=== PATIENT | female | born 1970 | race Caucasian/White ===

== ENCOUNTER → 2019-06-13 | Outpatient (CLI) | payer OTHER ==
[2019-06-13 09:25] LABS: Basophils # (A) 0.1 k/uL (0-0.2); Basophils % (A) 1 %; Eosinophils # (A) 0.2 k/uL (0-0.7); Eosinophils % (A) 2 %; Lymphocytes % (A) 32 %; MCH 26.8 pg (25.0-35.0); MCHC 31.6 g/dL (31.0-37.0); MCV 84.8 fL (80.0-100.0); Mean Platelet Volume 7.1; Monocytes # (A) 0.5 k/uL (0-1.0); Monocytes % (A) 6 %; Neutrophils # (A) 5.4 k/uL (1.3-7.7); Neutrophils % (A) 58 %; Platelet Count 301 k/uL (150-450); RBC 4.48 m/uL (3.80-5.40); RDW 14.4 % (11.5-15.5); WBC 9.2 k/uL (3.8-10.6)
[2019-06-13 09:40] LABS: Appearance,Urine Clear (Clear); Bilirubin,Urine Negative (Negative); Blood,Urine Negative (Negative); Color,Urine Light Yellow; Glucose,Urine (UA) Negative (Negative); Ketones,Urine Negative (Negative); Leukocyte Esterase,Urine Negative (Negative); Nitrite,Urine Negative (Negative); Protein,Urine Negative (Negative); Specific Gravity,Urine 1.005 (1.001-1.035); Urobilinogen,Urine <2.0 mg/dL (<2.0)
[2019-06-13 09:54] LABS: African American GFR (CKD) >90 (>60 ml/min/1.73 sqM); Anion Gap 9 mmol/L; Blood Urea Nitrogen 13 mg/dL (7-17); Calcium 9.5 mg/dL (8.4-10.2); Carbon Dioxide 25 mmol/L (22-30); Chloride 106 mmol/L (98-107); Glucose 111 mg/dL (74-99); Non-African American GFR(CKD) >90 (>60 ml/min/1.73 sqM); Potassium 4.3 mmol/L (3.5-5.1); Sodium 140 mmol/L (137-145)
== END | disposition home or self-care (01) ==
LOC: LABPAT 08:47
PROVIDERS: ATTEND Urology
DX: Z01.812 Encounter for preprocedural laboratory examination (principal); D41.02 Neoplasm of uncertain behavior of left kidney
CPT/HCPCS: 80048; 81003; 85025; 87086

== ENCOUNTER 2019-06-18 11:32 | Inpatient (IN) | payer OTHER ==
[2019-06-11 09:23] VITALS: BMI 27.4
[~2019-06-18 11:32] MED LIST: DEXAMETHASONE SOD PHOSPHATE 10 MG/ML 1 ML VIAL IV ONE; LIDOCAINE 1% 20 ML VIAL (10MG/ML) FOR IV START INTRADERMA PRN; ONDANSETRON 4 MG/2 ML VIAL IVP ONE; SCOPOLAMINE 1.5MG/72HR PATCH TRANSDERM ONE
[2019-06-18] MEDS: LACTATED RINGERS 1,000 ML IV SCH (12:19)
[2019-06-18] MEDS ORDERED: LIDOCAINE 1% INJ 10MG/ML (20 ML MDV) ONE (12:42)
[2019-06-18] MEDS ORDERED: fentaNYL (PF) 50 MCG/ML 2 ML AMP ONE (12:42)
[2019-06-18] MEDS ORDERED: GLYCOPYRROLATE 0.2 MG/ML 2 ML VIAL ONE (12:42)
[2019-06-18] MEDS ORDERED: MIDAZOLAM 2 MG/2 ML VIAL ONE (12:42)
[2019-06-18] MEDS ORDERED: PHENYLEPHRINE-0.9% NACL SYG 1 MG/10 ML SYRINGE ONE (12:42)
[2019-06-18] MEDS ORDERED: PROPOFOL 10 MG/ML 20 ML VIAL IV ONE (12:42)
[2019-06-18] MEDS ORDERED: ROCURONIUM BROMIDE 10 MG/ML 10 ML VIAL IV ONE (12:42)
[2019-06-18] MEDS ORDERED: NEOSTIGMINE 1 MG/ML 10 ML VIAL ONE (12:42)
[2019-06-18] MEDS ORDERED: HEPARIN SODIUM,PORCINE 5,000 UNIT/ML 1 ML VIAL SQ ONE (12:47)
[2019-06-18] MEDS ORDERED: BUPIVACAINE (PF) 0.5% 30 ML VIAL SQ ONE (13:20)
--- NOTE | 2019-06-18 14:34 | P.OP ---
Date of Procedure: 06/18/19 Preoperative Diagnosis: Left renal mass Postoperative Diagnosis: Left renal mass Procedure(s) Performed: Robotic left radical nephrectomy Anesthesia: JAYLAN Surgeon: Susana Hewitt Estimated Blood Loss (ml): 25 IV fluids (ml): 1,000 Urine output (ml): 100 Pathology: other (left kidney and ureter) Condition: stable Disposition: PACU Indications for Procedure: Left renal mass suspicious for malignancy Operative Findings: #1 large left renal mass measuring 12 cm #2 extensive perinephric parasitic vessels Description of Procedure: was seen in the office for a large left renal mass that was suspicious for malignancy. She elected to undergo robotic left radical nephrectomy. All risks and complications were explained to her and a written informed consent was obtained. She was taken to the OR administered general anesthesia and placed in the left lateral position. She was fixed to the table and parts were repaired painted and draped. A Veress needle was used to gain access to the peritoneum and the abdomen was insufflated to 20 mmHg. four 8 mm robotic ports were placed along the midclavicular line. A 15 mm preschool assistant port was placed. The robot was docked. Using the monopolar scissors and a fenestrated bipolar and incision was made along the line of Toldt and the descending and sigmoid colon was reflected off the Gerota fascia. Immediately upon reflection off the colon it was obvious that a large lower and mid pole renal mass was present. There were extensive parasitic vessels both inferior and medial to the mass. The lieno ligament was divided and the spleen and the pancreas was lifted reflected medially. The ureter was identified in the pelvis and reflected up towards. The psoas muscle was identified and the ureter was held up with the fourth arm. The Gerotas was divided serially till we reached the renal hilum. An accessory renal artery was seen at the lower pole and this was doubly clipped and cut. Attention was directed to the superior pole of the kidney and the kidney was reflected from the adrenal gland. Once the hilum was isolated a 60 mm stapler with a vascular load was used to secure and divide the hilum. The superior pole of the kidney was then freed by cutting and dividing the Gerota's fascia. Care was taken to achieve hemostasis by bipolar coagulation of the parasitic veins. Once the entire kidney was dissected off the psoas the ureter was clipped and cut. Hemostasis was reconfirmed and the kidney with a renal mass was placed into a 15 mm Endo Catch bag. The robot was de-docked and the specimen was removed through a paramedian incision. The fascia was closed in 2 layers with #2-0 stratafix effects and the skin incision was closed with subcuticular 4-0 Monocryl. The patient was taken to recovery in stable condition
[2019-06-18] MEDS: HYDROmorphone 0.5 MG/0.5 ML SYRINGE IVP PRN ×3 (15:00→15:21)
[2019-06-18] MEDS ORDERED: ONDANSETRON 4 MG/2 ML VIAL IVP PRN (15:53)
[2019-06-18] MEDS ORDERED: ACETAMINOPHEN TAB 325 MG TAB PO PRN (15:53)
[2019-06-18] MEDS ORDERED: HYDROmorphone 1 MG/ML 1 ML SYRINGE IVP PRN (15:53)
[2019-06-18] MEDS: DEXTROSE 5%-0.45% NACL 1,000 ML IV SCH (18:05)
[2019-06-18] MEDS: KETOROLAC 30 MG/ML 1 ML VIAL IVP PRN (23:12)
[2019-06-19 02:01] VITALS: RESP 18
[2019-06-19] MEDS: KETOROLAC 30 MG/ML 1 ML VIAL IVP PRN ×2 (05:01→11:41)
[2019-06-19] MEDS: DEXTROSE 5%-0.45% NACL 1,000 ML IV SCH ×2 (05:01→13:04)
[2019-06-19] MEDS: LACTATED RINGERS 1,000 ML IV SCH (05:35)
[2019-06-19 07:50] LABS: HGB 11.1 gm/dL (11.4-16.0); MCH 27.6 pg (25.0-35.0); MCHC 32.7 g/dL (31.0-37.0); MCV 84.2 fL (80.0-100.0); Mean Platelet Volume 7.1; Platelet Count 286 k/uL (150-450); RBC 4.04 m/uL (3.80-5.40); RDW 14.8 % (11.5-15.5); WBC 12.4 k/uL (3.8-10.6)
[2019-06-19 08:01] LABS: ALT 27 U/L (9-52); AST 25 U/L (14-36); African American GFR (CKD) >90 (>60 ml/min/1.73 sqM); Albumin 3.9 g/dL (3.5-5.0); Alkaline Phosphatase 140 U/L (38-126); Anion Gap 8 mmol/L; Blood Urea Nitrogen 12 mg/dL (7-17); Carbon Dioxide 23 mmol/L (22-30); Chloride 107 mmol/L (98-107); Glucose 118 mg/dL (74-99); Sodium 138 mmol/L (137-145); Total Bilirubin 0.3 mg/dL (0.2-1.3); Total Protein 6.7 g/dL (6.3-8.2)
[2019-06-19 09:04] VITALS: BP 152/83; PULSE 77; TEMP 97.8
--- NOTE | 2019-06-19 11:44 | P.PN ---
Subjective Progress Note Date: 06/19/19 Principal diagnosis: Left Renal Mass POD #1 S/P left radical nephrecomty, no acute overnight event pain is controlled. Ambulating, tolerating diet Objective - Vital Signs Vital signs: Vital Signs Temp 97.8 F 06/19/19 09:03 Pulse 77 06/19/19 09:03 Resp 18 06/19/19 09:03 BP 152/83 06/19/19 09:03 Pulse Ox 94 L 06/19/19 09:03 Intake & Output 06/18/19 06/19/19 06/19/19 18:59 06:59 18:59 Intake Total 1450 1650 Output Total 1075 2250 Balance 375 -600 Weight 75.296 kg Intake: IV 1450 Intake, IV Titration 1450 Amount Dextrose 5%-0.45% NaCl 1, 1400 000 ml @ 125 mls/hr IV . Q8H ASHLY Rx#:[id number] ceFAZolin 2 gm In Sodium 50 Chloride 0.9% 50 ml @ 100 mls/hr IVPB Q8H ASHLY Rx#: [id number] Oral 200 Output: Urine 1025 2250 Uretheral (Norman) 750 Estimated Blood Loss 50 Other: Voiding Method Indwelling Catheter Indwelling Catheter Indwelling Catheter - Constitutional General appearance: Present: no acute distress - Gastrointestinal General gastrointestinal: Present: soft. Absent: distended, rigid, tenderness - Integumentary Integumentary Comment(s): port incision covered with dermabond left lateral incision CDI - Labs CBC & Chem 7: 06/19/19 07:04 06/19/19 07:04 Labs: Abnormal Lab Results - Last 24 Hours (Table) 06/19/19 06/19/19 Range/Units 07:04 07:04 WBC 12.4 H (3.8-10.6) k/uL Hgb 11.1 L (11.4-16.0) gm/dL Glucose 118 H (74-99) mg/dL Alkaline Phosphatase 140 H (38-126) U/L Assessment and Plan Assessment: POD #1 S/P Left radical nephrectomy -Pain control -Ambulate -D/C norman -Discharge home today
--- NOTE | 2019-06-19 11:51 | P.DS ---
Providers Date of admission: 06/19/19 11:00 06/18/19 Expected date of discharge: 06/19/19 Attending physician: Susana Hewitt Primary care physician: Beck Song [facility] Course: Ms. Zhao is 49 yo female with hx of left renal mass, she is S/P left radical nephrectomy. Please see OP note dated 06/18 for surgery details. She admitted post operatively. She did well in the post operative period and was discharged home on POD #1. At time of discharge she was tolerating diet, ambulating and pain well controlled Patient Condition at Discharge: Good Plan - Discharge Summary Discharge Rx Participant: Yes New Discharge Prescriptions: No Action Nicotine 21Mg/24Hr Patch [Habitrol] 1 each TRANSDERM DAILY Aspirin 81 mg PO DAILY Atorvastatin [Lipitor] 20 mg PO HS Metoprolol Succinate (ER) [Toprol Xl] 50 mg PO QAM Irbesartan 300 mg PO QAM amLODIPine [Norvasc] 10 mg PO QAM Discharge Medication List Aspirin 81 mg PO DAILY 06/11/19 [History] Atorvastatin [Lipitor] 20 mg PO HS 06/11/19 [History] Irbesartan 300 mg PO QAM 06/11/19 [History] Metoprolol Succinate (ER) [Toprol Xl] 50 mg PO QAM 06/11/19 [History] Nicotine 21Mg/24Hr Patch [Habitrol] 1 each TRANSDERM DAILY 06/11/19 [History] amLODIPine [Norvasc] 10 mg PO QAM 06/11/19 [History] Follow up Appointment(s)/Referral(s): Susana Hewitt MD [STAFF PHYSICIAN] - 1 Week Activity/Diet/Wound Care/Special Instructions: No heavy Lifting or straining You may shower tomorrow, but not baths Take your medication as prescribed Discharge Disposition: HOME SELF-CARE
--- NOTE | 2019-06-23 16:00 | CDI ---
Documentation Clarification Form Date: 06/23/19 From: Juliet Marie Phone: If you have a question regarding this query, please contact Yanique Mendez at [phone] between 8am and 5pm. Admit Date: 06/19/2019 11:00:00 AM Patient Name: Neris Zhao Visit Number: [id number] Discharge Date: 06/19/2019 3:09:00 PM ATTENTION: The Clinical Documentation Specialists (CDI) and [facility] Coding Staff appreciate your assistance in clarifying documentation. Please respond to the clarification below the line at the bottom and electronically sign. The CDI & [facility] Coding staff will review the response and follow-up if needed. Please note: Queries are made part of the Legal Health Record. If you have any questions, please contact the author of this message via ITS. Dr. 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 Documentation states: Left renal mass. Patient history/risk factors: Renal Mass Clinical Indicators: Renal Mass Treatment: Left radical nephrectomy In your professional opinion, do you agree with the pathology report specifying the left renal mass as clear cell (conventional) renal cell carcinoma confined to the kidney? Yes No Other (please specify) Unable to determine Yes Thx Dr Olson [facility]
== END 2019-06-19 15:09 | disposition home or self-care (01) | DRG 658 ==
LOC: OR 11:32 → 4SSUR 14:35 → OR 06-19 05:25 → OBSVTOIN 06-19 11:00
PROVIDERS: ADMIT Urology; ATTEND Urology
PROC: 0TT14ZZ Resection of Left Kidney, Percutaneous Endoscopic Approach (ICD-10-PCS; principal; 2019-06-19)
PROC: 8E0W4CZ Robotic Assisted Procedure of Trunk Region, Percutaneous Endoscopic Approach (ICD-10-PCS; 2019-06-19)
DX: C64.2 Malignant neoplasm of left kidney, except renal pelvis (principal); Z79.899 Other long term (current) drug therapy
CPT/HCPCS: 80053; 81025; 85027; 86850; 86900; 86901; 88307; 94760

== ENCOUNTER 2023-04-23 13:33 | Emergency (ER) | payer OTHER ==
[2023-04-23 13:48] VITALS: TEMP 98.2
[2023-04-23] MEDS ORDERED: SODIUM CHLORIDE 0.9% 500 ML 500 ML IV STA (13:48)
[2023-04-23 14:14] LABS: Basophils # (A) 0.1 k/uL (0-0.2); Basophils % (A) 1 %; Eosinophils # (A) 0.1 k/uL (0-0.7); Eosinophils % (A) 1 %; HCT 43.1 % (34.0-46.0); HGB 15.1 gm/dL (11.4-16.0); Lymphocytes # (A) 3.8 k/uL (1.0-4.8); Lymphocytes % (A) 42 %; MCH 31.5 pg (25.0-35.0); MCHC 35.1 g/dL (31.0-37.0); MCV 89.7 fL (80.0-100.0); Mean Platelet Volume 7.8; Monocytes # (A) 0.4 k/uL (0-1.0); Monocytes % (A) 5 %; Neutrophils # (A) 4.5 k/uL (1.3-7.7); Neutrophils % (A) 50 %; Platelet Count 229 k/uL (150-450); RDW 12.6 % (11.5-15.5)
--- NOTE | 2023-04-23 14:15 | XR ---
EXAMINATION TYPE: XR chest 2V DATE OF EXAM: 04/23/2023 COMPARISON: NONE HISTORY: Shortness of breath TECHNIQUE: Frontal and lateral views of the chest are obtained. FINDINGS: Scattered senescent parenchymal changes noted. No evidence for infiltrate. No evidence for atelectasis. Heart size is stable. Mediastinal structures are stable and grossly unremarkable. No evidence for hilar prominence. Degenerative changes dorsal spine. IMPRESSION: 1. No evidence for acute pulmonary disease.
[2023-04-23 14:26] LABS: ALT 32 U/L (4-34); AST 27 U/L (14-36); African American GFR (CKD) >90 (>60 ml/min/1.73 sqM); Alkaline Phosphatase 148 U/L (38-126); Anion Gap 9 mmol/L; Blood Urea Nitrogen 18 mg/dL (7-17); Calcium 9.6 mg/dL (8.4-10.2); Carbon Dioxide 23 mmol/L (22-30); Chloride 106 mmol/L (98-107); Glucose 118 mg/dL (74-99); Magnesium 2.1 mg/dL (1.6-2.3); Non-African American GFR(CKD) 87 (>60 ml/min/1.73 sqM); Potassium 3.9 mmol/L (3.5-5.1); Sodium 138 mmol/L (137-145); Total Bilirubin 0.4 mg/dL (0.2-1.3); Total Protein 7.1 g/dL (6.3-8.2)
--- NOTE | 2023-04-23 14:44 | ED ---
General Adult HPI - General Chief complaint: Arrhythmia/Palpitations Stated complaint: high BP Time Seen by Provider: 04/23/23 13:45 Source: patient, EMS, RN notes reviewed, old records reviewed Mode of arrival: EMS Limitations: no limitations - History of Present Illness Initial comments: This is a 53-year-old female presents emergency department stating that long time ago she had high blood pressure but when she had a kidney removed her blood pressure was back to normal. Patient states she hasn't seen a doctor since 2019. Patient states she comes in today via EMS because she had fluttering in her heart that lasted about 2 seconds and she immediately called 911 because it scared her. Patient states it happened one more time that lasted shorter than 2 seconds and she hasn't had it since. Patient denies headache patient denies any numbness weakness. Patient denies any visual disturbance. Patient denies any chest pain difficulty breathing shortness of breath. Patient states when the fluttering occurred she was a little lightheaded but she didn't think she was given a passout. Patient denies any fever chills or cough per patient denies abdominal pain patient with any nausea or vomiting. - Related Data Home Medications Medication Instructions Recorded Confirmed Aspirin 81 mg PO DAILY 06/11/19 04/23/23 Previous Rx's Medication Instructions Recorded amLODIPine [Norvasc] 5 mg PO DAILY #10 tab 04/23/23 Allergies Allergy/AdvReac Type Severity Reaction Status Date / Time No Known Allergies Allergy Verified 04/23/23 14:46 Review of Systems ROS Statement: Those systems with pertinent positive or pertinent negative responses have been documented in the HPI. ROS Other: All systems not noted in ROS Statement are negative. Past Medical History Past Medical History: Cancer, Hypertension, Pneumonia Additional Past Medical History / Comment(s): pt states "malignant mass left kidney",palpitations,hx pneumonia yrs ago History of Any Multi-Drug Resistant Organisms: None Reported Additional Past Surgical History / Comment(s): colonoscopy Past Anesthesia/Blood Transfusion Reactions: No Reported Reaction Additional Past Anesthesia/Blood Transfusion Reaction / Comment(s): no hx of having general anesthesia or blood transfusion Past Psychological History: No Psychological Hx Reported Past Alcohol Use History: Occasional Past Drug Use History: None Reported - Past Family History Mother Family Medical History: Cancer Additional Family Medical History / Comment(s): uterine Father Family Medical History: Cancer Additional Family Medical History / Comment(s): colon General Exam - General Exam Comments Initial Comments: GENERAL: Patient is well-developed and well-nourished. Patient is nontoxic and well-hydr ated and is in mild distress. ENT: Neck is soft and supple. No significant lymphadenopathy is noted. Oropharynx is clear. Moist mucous membranes. Neck has full range of motion without eliciting any pain. EYES: The sclera were anicteric and conjunctiva were pink and moist. Extraocular movements were intact and pupils were equal round and reactive to light. Eyelids were unremarkable. PULMONARY: Unlabored respirations. Good breath sounds bilaterally. No audible rales rhonchi or wheezing was noted. CARDIOVASCULAR: There is a regular rate and rhythm without any murmurs gallops or rubs. ABDOMEN: Soft and nontender with normal bowel sounds. SKIN: Skin is clear with no lesions or rashes and otherwise unremarkable. NEUROLOGIC: Patient is alert and oriented x3. Cranial nerves II through XII are grossly intact. Motor and sensory are also intact. Normal speech, volume and content. Symmetrical smile. MUSCULOSKELETAL: Normal extremities with adequate strength and full range of motion. LYMPHATICS: No significant lymphadenopathy is noted PSYCHIATRIC: Normal psychiatric evaluation. Limitations: no limitations Course Vital Signs 04/23/23 04/23/23 04/23/23 13:36 13:50 14:00 Temperature 98.2 F Pulse Rate 110 H 97 101 H Pulse Rate [ Passenger Representative ] Respiratory 18 18 18 Rate Blood Pressure 189/133 147/115 171/104 Blood Pressure [Left Arm Sitting] Blood Pressure [Right Arm Supine] O2 Sat by Pulse 95 94 L 95 Oximetry 04/23/23 04/23/23 04/23/23 14:10 14:30 14:45 Temperature Pulse Rate 103 H 85 89 Pulse Rate [ Passenger Representative ] Respiratory 20 16 20 Rate Blood Pressure 169/103 164/99 164/97 Blood Pressure [Left Arm Sitting] Blood Pressure [Right Arm Supine] O2 Sat by Pulse 95 95 95 Oximetry 04/23/23 04/23/23 04/23/23 15:00 15:15 15:30 Temperature Pulse Rate 86 84 90 Pulse Rate [ Passenger Representative ] Respiratory 20 17 19 Rate Blood Pressure 167/98 158/93 143/91 Blood Pressure [Left Arm Sitting] Blood Pressure [Right Arm Supine] O2 Sat by Pulse 95 94 L 95 Oximetry 04/23/23 04/23/23 15:45 16:00 Temperature Pulse Rate 90 Pulse Rate [ 96 Passenger Representative ] Respiratory 17 18 Rate Blood Pressure 148/90 Blood Pressure 154/95 [Left Arm Sitting] Blood Pressure 159/99 [Right Arm Supine] O2 Sat by Pulse 95 95 Oximetry Medical Decision Making - Medical Decision Making EKG is interpreted by myself shows a sinus rhythm at 92 bpm NC interval 181 QRSs 105 QT interval 355 QTC is 405. Patient's EKG shows no ST segment elevation or depression Was pt. sent in by a medical professional or institution (, TAM, CASINO F[employer]ORPERSON, urgent care, hospital, or detention...) When possible be specific @ -No Did you speak to anyone other than the patient for history (EMS, parent, family, police, friend...)? What history was obtained from this source @ -No Did you review nursing and triage notes (agree or disagree)? Why? @ -I reviewed and agree with nursing and triage notes Were old charts reviewed (outside hosp., previous admission, EMS record, old EKG, old radiological studies, urgent care reports/EKG's, detention records)? Report findings @ -No Differential Diagnosis (chest pain, altered mental status, abdominal pain women, abdominal pain men, vaginal bleeding, weakness, fever, dyspnea, syncope, headache, dizziness, GI bleed, back pain, seizure, CVA, palpatations, mental health, musculoskeletal)? @ -Differential Palpitations Ventricular arrhythmias, atrial arrhythmias, myocardial infarction, anemia, thyrotoxicosis, electrolyte imbalance, hypokalemia, pulmonary embolism, pulmonary disease, drugs, alcohol, anxiety, stress.... This is not meant to be an all-inclusive list. EKG interpreted by me (3pts min.). @ -As above X-rays interpreted by me (1pt min.). @ -Chest x-ray shows no acute abnormality. CT interpreted by me (1pt min.). @ -None done U/S interpreted by me (1pt. min.). @ -None done What testing was considered but not performed or refused? (CT, X-rays, U/S, labs)? Why? @ -None What meds were considered but not given or refused? Why? @ -None Did you discuss the management of the patient with other professionals (professionals i.e. , PA, CASINO F[employer]ORPERSON, lab, RT, psych nurse, social sciences department chair, historian dramatic arts, teacher, artillery officer, case resource manager)? Give summary @ -No Was smoking cessation discussed for >3mins.? @ -No Was critical care preformed (if so, how long)? @ -No Were there social determinants of health that impacted care today? How? (Homelessness, low income, unemployed, alcoholism, drug addiction, transportation, low edu. Level, literacy, decrease access to med. care, retirement, rehab)? @ -No Was there de-escalation of care discussed even if they declined (Discuss DNR or withdrawal of care, Hospice)? DNR status @ -No What co-morbidities impacted this encounter? (DM, HTN, Smoking, COPD, CAD, Cancer, CVA, ARF, Chemo, Hep., AIDS, mental health diagnosis, sleep apnea, morbid obesity)? @ -None Was patient admitted / discharged? Hospital course, mention meds given and route, prescriptions, significant lab abnormalities, going to OR and other pertinent info. @ -Patient told us that she had another palpitation while in the emergency department . When I looked up at the monitor and had a printed out the patient showed a PVC on the monitor. Undiagnosed new problem with uncertain prognosis? @ -No Drug Therapy requiring intensive monitoring for toxicity (Heparin, Nitro, Insulin, Cardizem)? @ -No Were any procedures done? @ -No Diagnosis/symptom? @ -PVCs Acute, or Chronic, or Acute on Chronic? @ -Acute Uncomplicated (without systemic symptoms) or Complicated (systemic symptoms)? @ -Uncomplicated Side effects of treatment? @ -No Exacerbation, Progression, or Severe Exacerbation? @ -No Poses a threat to life or bodily function? How? (Chest pain, USA, SC, pneumonia, PE, COPD, DKA, ARF, appy, cholecystitis, CVA, Diverticulitis, Homicidal, Suicidal, threat to staff... and all critical care pts) @ -No Diagnosis/symptom? @ -Hypertension urgency Acute, or Chronic, or Acute on Chronic? @ -Acute Uncomplicated (without systemic symptoms) or Complicated (systemic symptoms)? @ -Complicated Side effects of treatment? @ -none Exacerbation, Progression, or Severe Exacerbation] @ -no Poses a threat to life or bodily function? @ -no - Lab Data Result diagrams: 04/23/23 13:59 04/23/23 13:59 Lab Results 04/23/23 04/23/23 04/23/23 Range/Units 13:59 13:59 13:59 WBC 9.0 (3.8-10.6) k/uL RBC 4.80 (3.80-5.40) m/uL Hgb 15.1 (11.4-16.0) gm/dL Hct 43.1 (34.0-46.0) % MCV 89.7 (80.0-100.0) fL MCH 31.5 (25.0-35.0) pg MCHC 35.1 (31.0-37.0) g/dL RDW 12.6 (11.5-15.5) % Plt Count 229 (150-450) k/uL MPV 7.8 Neutrophils % 50 % Lymphocytes % 42 % Monocytes % 5 % Eosinophils % 1 % Basophils % 1 % Neutrophils # 4.5 (1.3-7.7) k/uL Lymphocytes # 3.8 (1.0-4.8) k/uL Monocytes # 0.4 (0-1.0) k/uL Eosinophils # 0.1 (0-0.7) k/uL Basophils # 0.1 (0-0.2) k/uL Sodium 138 (137-145) mmol/L Potassium 3.9 (3.5-5.1) mmol/L Chloride 106 (98-107) mmol/L Carbon Dioxide 23 (22-30) mmol/L Anion Gap 9 mmol/L BUN 18 H (7-17) mg/dL Creatinine 0.78 (0.52-1.04) mg/dL Est GFR (CKD-EPI)AfAm >90 (>60 ml/min/1.73 sqM) Est GFR (CKD-EPI)NonAf 87 (>60 ml/min/1.73 sqM) Glucose 118 H (74-99) mg/dL Calcium 9.6 (8.4-10.2) mg/dL Magnesium 2.1 (1.6-2.3) mg/dL Total Bilirubin 0.4 (0.2-1.3) mg/dL AST 27 (14-36) U/L ALT 32 (4-34) U/L Alkaline Phosphatase 148 H (38-126) U/L Troponin I <0.012 (0.000-0.034) ng/mL Total Protein 7.1 (6.3-8.2) g/dL Albumin 4.0 (3.5-5.0) g/dL TSH 2.600 (0.465-4.680) mIU/L Urine Opiates Screen (NotDetected) Ur Oxycodone Screen (NotDetected) Urine Methadone Screen (NotDetected) Ur Propoxyphene Screen (NotDetected) Ur Barbiturates Screen (NotDetected) U Tricyclic Antidepress (NotDetected) Ur Phencyclidine Scrn (NotDetected) Ur Amphetamines Screen (NotDetected) U Methamphetamines Scrn (NotDetected) U Benzodiazepines Scrn (NotDetected) Urine Cocaine Screen (NotDetected) U Marijuana (THC) Screen (NotDetected) 04/23/23 Range/Units 14:55 WBC (3.8-10.6) k/uL RBC (3.80-5.40) m/uL Hgb (11.4-16.0) gm/dL Hct (34.0-46.0) % MCV (80.0-100.0) fL MCH (25.0-35.0) pg MCHC (31.0-37.0) g/dL RDW (11.5-15.5) % Plt Count (150-450) k/uL MPV Neutrophils % % Lymphocytes % % Monocytes % % Eosinophils % % Basophils % % Neutrophils # (1.3-7.7) k/uL Lymphocytes # (1.0-4.8) k/uL Monocytes # (0-1.0) k/uL Eosinophils # (0-0.7) k/uL Basophils # (0-0.2) k/uL Sodium (137-145) mmol/L Potassium (3.5-5.1) mmol/L Chloride (98-107) mmol/L Carbon Dioxide (22-30) mmol/L Anion Gap mmol/L BUN (7-17) mg/dL Creatinine (0.52-1.04) mg/dL Est GFR (CKD-EPI)AfAm (>60 ml/min/1.73 sqM) Est GFR (CKD-EPI)NonAf (>60 ml/min/1.73 sqM) Glucose (74-99) mg/dL Calcium (8.4-10.2) mg/dL Magnesium (1.6-2.3) mg/dL Total Bilirubin (0.2-1.3) mg/dL AST (14-36) U/L ALT (4-34) U/L Alkaline Phosphatase (38-126) U/L Troponin I (0.000-0.034) ng/mL Total Protein (6.3-8.2) g/dL Albumin (3.5-5.0) g/dL TSH (0.465-4.680) mIU/L Urine Opiates Screen Not Detected (NotDetected) Ur Oxycodone Screen Not Detected (NotDetected) Urine Methadone Screen Not Detected (NotDetected) Ur Propoxyphene Screen Not Detected (NotDetected) Ur Barbiturates Screen Not Detected (NotDetected) U Tricyclic Antidepress Not Detected (NotDetected) Ur Phencyclidine Scrn Not Detected (NotDetected) Ur Amphetamines Screen Not Detected (NotDetected) U Methamphetamines Scrn Not Detected (NotDetected) U Benzodiazepines Scrn Not Detected (NotDetected) Urine Cocaine Screen Not Detected (NotDetected) U Marijuana (THC) Screen Not Detected (NotDetected) Disposition Clinical Impression: Hypertensive urgency, PVCs (premature ventricular contractions), Hypertension Disposition: HOME SELF-CARE Instructions (If sedation given, give patient instructions): Heart Palpitations (ED), Premature Ventricular Contractions (ED) Prescriptions: amLODIPine [Norvasc] 5 mg PO DAILY #10 tab Is patient prescribed a controlled substance at d/c from ED?: No Referrals: Beck Song MD [Primary Care Provider] - 1-2 days Time of Disposition: 16:58
[2023-04-23 15:36] LABS: Amphetamine Screen,Urine Not Detected (NotDetected); Barbiturate Screen,Urine Not Detected (NotDetected); Benzodiazepines Screen,Urine Not Detected (NotDetected); Cocaine Screen,Urine Not Detected (NotDetected); Methadone Screen, Urine Not Detected (NotDetected); Opiate Screen,Urine Not Detected (NotDetected); Oxycodone Screen, Urine Not Detected (NotDetected); Phencyclidine Screen,Urine Not Detected (NotDetected); Tricyclic Antidepressant,Urine Not Detected (NotDetected); Urn Cannabinoid Scrn Not Detected (NotDetected)
[2023-04-23 16:01] VITALS: RESP 18
[2023-04-23 17:09] VITALS: BP 149/95; PULSE 90
== END 2023-04-23 17:12 | disposition home or self-care (01) ==
LOC: EC 13:33
DX: I16.0 Hypertensive urgency (principal); I49.3 Ventricular premature depolarization; Z79.82 Long term (current) use of aspirin
CPT/HCPCS: 36415; 71046; 80053; 80306; 83735; 84443; 84484; 85025; 93005; 96360; 99285

== ENCOUNTER → 2023-06-07 | Outpatient (CLI) | payer OTHER ==
--- NOTE | 2023-06-11 09:40 | MM ---
Reason for Exam: Screening (asymptomatic). Last mammogram was performed 17 year(s) and 7 month(s) ago. Patient History: Menarche at age 12. First Full-Term at age 26. Postmenopausal. Other cancer, age 48. Risk Values: Geovanna 5 year model risk: 1.2%. NCI Lifetime model risk: 9.4%. Prior Study Comparison: 11/27/2005 Bilateral Diagnostic Mammogram, [facility]. Tissue Density: There are scattered fibroglandular densities. Findings: Analyzed By CAD. There is no suspicious group of microcalcifications or new suspicious mass in either breast. Overall Assessment: Negative, BI-RAD 1 Management: Screening Mammogram of both breasts in 1 year. . Patient should continue monthly self-breast exams. A clinical breast exam by your physician is recommended on an annual basis. This exam should not preclude additional follow-up of suspicious palpable abnormalities. Note on Geovanna scores and lifetime risk: 1. A Geovanna score greater than 3% is considered moderate risk. If this is the case, consider specialist referral to assess eligibility for a risk reducing agent. 2. If overall lifetime risk for the development of breast cancer is 20% or higher, the patient may qualify for future screening with alternating mammogram and breast MRI. Electronically signed and approved by: Sachin Hazel M.D. Radiologis
== END | disposition home or self-care (01) ==
LOC: RADMAMWWP 12:32
PROVIDERS: ATTEND Family Medicine
DX: Z12.31 Encounter for screening mammogram for malignant neoplasm of breast (principal); Z78.0 Asymptomatic menopausal state
CPT/HCPCS: 77067

== ENCOUNTER → 2024-06-18 | Outpatient (CLI) | payer OTHER ==
--- NOTE | 2024-06-28 13:14 | MM ---
Reason for Exam: Screening (asymptomatic). Last screening mammogram was performed 12 month(s) ago. Patient History: Menarche at age 12. First Full-Term at age 26. Postmenopausal. Other cancer, age 48. Risk Values: Geovanna 5 year model risk: 1.3%. NCI Lifetime model risk: 9.3%. Prior Study Comparison: 11/27/2005 Bilateral Diagnostic Mammogram, [facility]. 06/07/2023 Bilateral MG screening mammo w CAD, [facility]. Tissue Density: The breasts are almost entirely fatty. Findings: Analyzed By CAD. The pattern is stable. Focal asymmetry in the upper outer left breast is stable. There is a benign-appearing calcification within the left breast. No suspicious groups of microcalcifications, spiculated or lobular masses, architectural distortion or other secondary signs of malignancy are mammographically apparent. Overall Assessment: Benign, BI-RAD 2 Management: Screening Mammogram of both breasts in 1 year. A negative mammogram report should not preclude additional follow up of suspicious palpable abnormalities. Patient should continue monthly self breast exam. A clinical breast exam by your physician is recommended on an annual basis and results should be correlated with mammographic findings. Note on Geovanna scores and lifetime risk: 1. A Geovanna score greater than 3% is considered moderate risk. If this is the case, consider specialist referral to assess eligibility for a risk reducing agent. 2. If overall lifetime risk for the development of breast cancer is 20% or higher, the patient may qualify for future screening with alternating mammogram and breast MRI. [facility], , 06/28/2024 1:11 PM. Electronically signed and approved by: Ralph Piper D.O. Radiologis
== END | disposition home or self-care (01) ==
LOC: RADMAMWWP 08:44
PROVIDERS: ATTEND Family Medicine
CPT/HCPCS: 77067